=== PATIENT | female | born 1980 | race African-American/Black ===

== ENCOUNTER 2017-01-18 19:51 | Emergency (ER) | payer MEDICAID ==
[~2017-01-18] VITALS: Ht 162.6 cm; Wt 68.0 kg
[2017-01-18] MEDS ORDERED: SODIUM CHLORIDE 0.9% 1,000 ML IV ONE (20:54)
[2017-01-18] MEDS ORDERED: KETOROLAC 30MG/ML VIAL IV STA (20:54)
[2017-01-18 21:16] LABS: BASOPHILS % 0.5 % (0.0-2.0); EOSINOPHILS % 0.1 % (0.0-5.0); HEMATOCRIT. 42.2 % (36.0-48.0); HEMOGLOBIN. 14.4 g/dL (12.0-16.0); LYMPHOCYTES % 17.8 % (20.0-50.0); MEAN CORPUSCULAR HEMOGLOBIN 29.7 pg (28.0-32.0); MEAN CORPUSCULAR VOLUME 87.2 fL (81.0-99.0); MEAN PLATELET VOLUME 9.4 fl (7.4-10.4); NEUTROPHILS % 75.6 % (40.0-76.0); PLATELET 194 x1000/uL (130-400); RED BLOOD CELL COUNT 4.84 mill/uL (4.2-5.4); RED CELL DISTRIBUTION WIDTH 13.5 % (11.6-14.6)
[2017-01-18 21:18] LABS: CHLORIDE 103 mEq/L (98-107)
[2017-01-18 21:23] LABS: CARBON DIOXIDE 25 mEq/L (21-32)
[2017-01-18 21:37] LABS: HCG SCREEN NEGATIVE
[2017-01-18 23:29] VITALS: BP 107/74
== END 2017-01-18 23:32 | disposition home or self-care (01) ==
LOC: ER 20:38
DX: S01.81XA Laceration without foreign body of other part of head, initial encounter (principal); S80.02XA Contusion of left knee, initial encounter; R55 Syncope and collapse; R68.84 Jaw pain; F17.200 Nicotine dependence, unspecified, uncomplicated; W18.30XA Fall on same level, unspecified, initial encounter; Y93.89 Activity, other specified; Y92.89 Other specified places as the place of occurrence of the external cause; Y99.8 Other external cause status
CPT/HCPCS: 12011; 36415; 70450; 70486; 71010; 73560; 80053; 84703; 85025; 93005; 96361; 96374; 99285; J1885; J7030; Z7610